=== PATIENT | male | born 1935 | race Caucasian/White ===

== ENCOUNTER 2019-01-04 10:03 | Outpatient (CLI) | payer MEDICARE, OTHER ==
[2019-01-04 10:51] LABS: #Basophils 0.1 thou/uL (0.0-0.2); #Eosinphils 0.2 thou/uL (0.0-0.7); #Lymphocytes 2.1 thou/uL (1.20-3.40); #Monocytes 0.8 thou/uL (0.11-0.59); #Neutrophils 3.8 thou/uL (1.40-6.50); %Basophils 1.1 % (0.0-1.0); %Eosinophils 3.2 % (0.0-10.0); %Lymphocytes 29.7 % (21.0-51.0); %Monocytes 11.7 % (0.0-10.0); %Neutrophils 54.3 % (42.0-75.0); Hemoglobin 15.5 g/dL (14.0-18.0); Mean Corpuscular HGB CONC 33.3 g/dL (32.0-36.0); Mean Corpuscular Hemoglobin 32.9 pg (27.0-31.0); Mean Corpuscular Volume 98.8 fL (78.0-98.0); Mean Platelet Volume 10.1 fL (7.4-10.4); Platelet Count 176 thou/uL (130-400); RBC Distribution Width 11.6 % (11.5-14.5); Red Blood Cell (RBC) Count 4.73 mill/uL (4.70-6.10)
[2019-01-04 11:11] LABS: Anion Gap 12 mmol/L (10-20); BUN (Urea Nitrogen) 22 mg/dL (8.4-25.7); Calc. Creatinine Clearance 0 mL/min (70-130); Calcium 10.3 mg/dL (7.8-10.44); Carbon Dioxide 29 mmol/L (23-31); Chloride 103 mmol/L (98-107); Estimated GFR-MDRD 60; Glucose 86 mg/dL (83-110); Potassium 4.1 mmol/L (3.5-5.1); Sodium 140 mmol/L (136-145)
--- NOTE | 2019-01-04 16:57 | EKG ---
Test Reason : Blood Pressure : / mmHG Vent. Rate : 053 BPM Atrial Rate : 053 BPM P-R Int : 180 ms QRS Dur : 098 ms QT Int : 460 ms P-R-T Axes : 072 067 049 degrees QTc Int : 431 ms Sinus bradycardia Nonspecific ST-T changes No previous ECGs available Confirmed by DR. Jason HARP ([id number]) on 01/04/2019 4:57:43 PM Referred By: LUCIA Confirmed By:DR. Jason HARP
== END 2019-01-04 10:04 | disposition home or self-care (01) ==
LOC: LABBT 10:03
PROVIDERS: ATTEND Specialist
DX: Z01.818 Encounter for other preprocedural examination (principal); D12.8 Benign neoplasm of rectum
CPT/HCPCS: 80048; 85025; 93005; 93010

== ENCOUNTER 2019-01-08 05:45 | Day surgery (SDC) | payer MEDICARE, OTHER ==
[2019-01-04 10:43] VITALS: BMI 20.7
[2019-01-08] MEDS ORDERED: Sodium Chloride 0.9% 100 ML ONE (06:28)
[2019-01-08] MEDS ORDERED: Ketorolac Tromethamine 30 MG/ML VIAL ONE (06:28)
[2019-01-08] MEDS ORDERED: cefOXitin 2 GM VIAL ONE (06:28)
[2019-01-08] MEDS ORDERED: Fentanyl 100 MCG/2 ML VIAL ONE (06:51)
[2019-01-08] MEDS ORDERED: Lidocaine 2% Jelly 5 ML TUBE ONE (06:57)
[2019-01-08] MEDS ORDERED: Bupivacaine/Epinephrine 0.25% 30 ML VIAL ONE (06:57)
[2019-01-08] MEDS ORDERED: PROPOFOL 200 MG/20 ML VIAL ONE (16:30)
[2019-01-08] MEDS ORDERED: Lidocaine 1% PF 5 ML VIAL ONE (16:30)
--- NOTE | 2019-01-09 10:27 | OP ---
DATE OF PROCEDURE: 01/08/2019 PREOPERATIVE DIAGNOSIS: Adenomatous polyps of distal rectum/anal canal. POSTOPERATIVE DIAGNOSIS: Adenomatous polyps of distal rectum/anal canal. PROCEDURE PERFORMED: Transanal resection of rectal polyp x2. ANESTHESIA: General endotracheal. INDICATIONS: The patient is an 83-year-old white male. He recently underwent colonoscopy and biopsy of a couple of lesions in his distal rectum revealed that these were adenomatous polyps. He is taken to the operating room at this time for resection of these polyps. DESCRIPTION OF OPERATION: Informed consent was obtained. The patient was taken to the operating room, where general anesthesia was obtained with the patient in supine position. He was placed in the dorsal lithotomy using stirrups. Perianal area was prepped with Betadine and draped in sterile fashion. Local anesthetic was infiltrated using 0.25% Marcaine with epinephrine in 4 quadrant in a sphincteric fashion. The anus and rectum were thoroughly inspected using the anal speculum. There was a dominant polyp that was at about the 8 o'clock radian, a smaller polyp that was at about the 10 o'clock radian. I did not visualize any other concerning abnormality anywhere in the anorectal canal. Attention was turned first to the larger polyp. This was grasped with Allis clamp. Local anesthetic was infiltrated submucosal and a full-thickness radial elliptical excision was performed. The specimen was passed off the field. The defect was closed with a running locking suture of 3-0 Vicryl. Attention was turned to the smaller polyp. This was fairly close to the first polyp, but excision of both of them in the same specimen would have led to too large for the defect. I therefore resected the second smaller polyp and closed the defect again using a running suture of 3-0 Vicryl. There was no evidence of other abnormality within the anal canal. Hemostasis was intact. Avitene was placed within the anal canal and dry gauze dress was placed externally. There were no complications. The patient tolerated the procedure well and was taken to recovery room in stable condition. Job ID: [id number]
== END 2019-01-08 11:00 | disposition home or self-care (01) ==
LOC: SDC 05:45
PROVIDERS: ATTEND Specialist
PROC: 0DBP7ZZ Excision of Rectum, Via Natural or Artificial Opening (ICD-10-PCS; principal; 2019-01-08)
DX: K62.1 Rectal polyp (principal); Z79.899 Other long term (current) drug therapy
CPT/HCPCS: 88305; J0131; J0694; J1885; J3010; J3490

== ENCOUNTER 2019-05-21 12:58 | Outpatient (CLI) | payer MEDICARE, OTHER ==
[2019-05-21] MEDS ORDERED: Iopamidol-370 76% 500 ML 1 ML ONE (13:59)
--- NOTE | 2019-05-21 14:57 | CT ---
CT ABDOMEN AND PELVIS WITH AND WITHOUT IV CONTRAST: Axial tomograms were obtained without IV enhancement. This was followed by post contrast images perf ormed in a portal venous phase and delayed venous phase following urographic protocol. INDICATION: Gross hematuria. FINDINGS: Lung bases clear. On the noncontrast images there is a 3-4 mm calculus in multiple collecting structures of the left ki dney. No hydronephrosis. Ureters are normal caliber. Urinary bladder is mildly distended. There i s prostatic hypertrophy which indents the floor of the bladder. No evidence of urinary tract obstruc tion. There is a cyst from the superior left kidney which measures 3.0 cm. The kidneys otherwise show norm al and symmetric enhancement and function. Liver and spleen and pancreas unremarkable. Numerous splenic granulomatous calcifications. There is a small low-density focus in the anterior mid liver near the falciform ligament which is subcentimet er and too small to characterize but most likely represents tiny hepatic cyst. The gallbladder is mildly distended. There is a large calcified gallstone in the neck of the gallbla dder which measures 2.0 cm. No evidence of biliary duct dilatation. Adrenal glands appear normal. Small bowel loops appear normal. Colon unremarkable. Large volume stool throughout the colon. Left colon and sigmoid diverticulosis. Images through the pelvis show mildly distended bladder on the delayed sequence. There is a bladder diverticulum which fills from the posterior floor of the bladder on the right. This bladder divertic ulum is measured at up to 5 cm. Osseous structures unremarkable. Degenerative changes at the hips. IMPRESSION: 1. Small nonobstructing calculus lower pole collecting structures left kidney. 2. Prostatic hypertrophy indenting the floor of the bladder. 3. Bladder diverticulum off the posterior bladder to the right of midline measuring up to 5 cm. 4. Left renal cyst as described. 5. Cholelithiasis. 6. Small fixed sliding diaphragmatic hernia. 7. Diverticulosis in the left colon and sigmoid. POS: [facility]
== END 2019-05-21 12:59 | disposition home or self-care (01) ==
LOC: BICCT 12:58
PROVIDERS: ATTEND Urology
DX: R31.0 Gross hematuria (principal); N20.0 Calculus of kidney; N40.0 Benign prostatic hyperplasia without lower urinary tract symptoms; N28.1 Cyst of kidney, acquired; N32.3 Diverticulum of bladder; K80.20 Calculus of gallbladder without cholecystitis without obstruction; K44.9 Diaphragmatic hernia without obstruction or gangrene; K57.30 Diverticulosis of large intestine without perforation or abscess without bleeding
CPT/HCPCS: 74178; 82565; Q9967

== ENCOUNTER 2019-08-10 15:04 | Emergency (ER) | payer MEDICARE, OTHER ==
[2019-08-10 15:59] LABS: Bilirubin Negative (Negative); Blood, Urine 1+ (Negative); Clarity Extra Turbid (Clear); Glucose, Urine (Dipstick) Normal (Negative); Leukocyte 500 Leu/uL (Negative); Nitrite Negative (Negative); Protein, Urine (Dipstick) 50 mg/dL (Neg-Trace); Squamous Epithelial None Seen HPF (0-3); Urobilinogen Normal mg/dL (Less than 2); WBC/HPF Greater than 50 HPF (0-3)
[2019-08-10] MEDS ORDERED: Acetaminophen 500 MG TAB ONE (16:04)
[2019-08-10 16:11] LABS: Bacteria/HPF 2+ HPF (None Seen)
[2019-08-10 16:36] LABS: #Eosinphils 0.2 thou/uL (0.0-0.7); #Lymphocytes 1.3 thou/uL (1.20-3.40); #Monocytes 1.2 thou/uL (0.11-0.59); #Neutrophils 10.6 thou/uL (1.40-6.50); %Basophils 0.2 % (0.0-1.0); %Eosinophils 1.4 % (0.0-10.0); %Lymphocytes 9.4 % (21.0-51.0); %Monocytes 9.3 % (0.0-10.0); %Neutrophils 79.7 % (42.0-75.0); Hemoglobin 14.7 g/dL (14.0-18.0); Mean Corpuscular HGB CONC 34.4 g/dL (32.0-36.0); Mean Corpuscular Volume 98.9 fL (78.0-98.0); Mean Platelet Volume 9.7 fL (7.4-10.4); Platelet Count 179 thou/uL (130-400); Red Blood Cell (RBC) Count 4.31 mill/uL (4.70-6.10); White Blood Cell (WBC) Count 13.4 thou/uL (4.8-10.8)
--- NOTE | 2019-08-10 16:55 | RAD ---
CHEST ONE VIEW: 08/10/19 HISTORY: Cough and congestion. COMPARISON: Radiograph 2014. FINDINGS: Mild increased bronchial markings left lower lobe suggesting chronic bronchitis. No pneumothorax. No effusion. No confluent air space consolidation. No acute osseous abnormality. IMPRESSION: Findings of chronic bronchitis and mild cardiomegaly. POS: HOME
[2019-08-10 16:57] LABS: ALT (SGPT) 14 U/L (8-55); AST (SGOT) 28 U/L (5-34); Albumin 4.2 g/dL (3.4-4.8); Alkaline Phosphatase 90 U/L (40-110); Anion Gap 13 mmol/L (10-20); BUN (Urea Nitrogen) 19 mg/dL (8.4-25.7); Bilirubin, Total 0.7 mg/dL (0.2-1.2); Calc. Creatinine Clearance 0 mL/min (70-130); Calcium 9.7 mg/dL (7.8-10.44); Carbon Dioxide 26 mmol/L (23-31); Chloride 103 mmol/L (98-107); Estimated GFR-MDRD 65; Globulin 3.5 g/dL (2.4-3.5); Glucose 104 mg/dL (83-110); Protein, Total 7.7 g/dL (5.8-8.1); Sodium 138 mmol/L (136-145)
== END 2019-08-10 17:23 | disposition home or self-care (01) ==
LOC: ERS 15:04
DX: N39.0 Urinary tract infection, site not specified (principal); M06.9 Rheumatoid arthritis, unspecified; Z79.899 Other long term (current) drug therapy
CPT/HCPCS: 71045; 80053; 85025; 87077; 87081; 87086; 87430; 87804 ×2; U0002; 36415; 81003; 81015; 87186; 87635

== ENCOUNTER 2019-08-26 08:57 | Inpatient (IN) | payer MEDICARE, OTHER ==
[2019-08-26 10:03] LABS: Hemoglobin 14.7 g/dL (14.0-18.0); Mean Corpuscular HGB CONC 33.5 g/dL (32.0-36.0); Mean Corpuscular Volume 98.3 fL (78.0-98.0); Mean Platelet Volume 9.5 fL (7.4-10.4); Platelet Count 229 thou/uL (130-400); RBC Distribution Width 11.9 % (11.5-14.5); Red Blood Cell (RBC) Count 4.45 mill/uL (4.70-6.10); White Blood Cell (WBC) Count 23.1 thou/uL (4.8-10.8)
[2019-08-26 10:18] LABS: ALT (SGPT) 14 U/L (8-55); AST (SGOT) 28 U/L (5-34); Albumin 4.1 g/dL (3.4-4.8); Alkaline Phosphatase 90 U/L (40-110); Anion Gap 13 mmol/L (10-20); BUN (Urea Nitrogen) 18 mg/dL (8.4-25.7); Bilirubin, Total 0.7 mg/dL (0.2-1.2); Calc. Creatinine Clearance 0 mL/min (70-130); Calcium 9.6 mg/dL (7.8-10.44); Carbon Dioxide 28 mmol/L (23-31); Chloride 104 mmol/L (98-107); Estimated GFR-MDRD 45; Globulin 3.4 g/dL (2.4-3.5); Glucose 137 mg/dL (83-110); Potassium 3.7 mmol/L (3.5-5.1); Protein, Total 7.5 g/dL (5.8-8.1); Sodium 141 mmol/L (136-145)
[2019-08-26 10:32] LABS: Band 41 % (5-11); Lymphocytes 2 % (21-51); MDiff Complete? YES; Monocytes 1 % (0-10); Neutrophil 56 % (42-75); RBC Morphology Normal; Reflex for Review?? NO
--- NOTE | 2019-08-26 10:49 | RAD ---
PORTABLE CHEST 1 VIEW: Date: 08/26/2019 Time: 1007 hours HISTORY: Fever, chills, body aches, right flank pain, and dysuria. COMPARISON: 08/10/2019. FINDINGS: The heart size is normal. The aorta is tortuous. The lungs are well expanded without lobar consolidat ion, pneumothoraces, or pleural effusions. IMPRESSION: No acute process. POS: [facility]
[2019-08-26 11:17] LABS: Bilirubin Negative (Negative); Blood, Urine 3+ (Negative); Clarity Extra Turbid (Clear); Glucose, Urine (Dipstick) Normal (Negative); Leukocyte 500 Leu/uL (Negative); Nitrite Negative (Negative); Protein, Urine (Dipstick) 200 mg/dL (Neg-Trace); RBC/HPF Greater than 50 HPF (0-3); Squamous Epithelial 0-3 HPF (0-3); Urobilinogen Normal mg/dL (Less than 2); WBC/HPF Greater than 50 HPF (0-3)
[2019-08-26] MEDS ORDERED: cefTRIAXone\\ROCEPHIN 2 GM VIAL ONE (11:24)
[2019-08-26] MEDS ORDERED: Vancomycin 1.5 GRAM/300 ML BAG 1.5 GM in Premix Bag 1 BAG IVPB SCH (11:30)
[2019-08-26 11:37] LABS: Bacteria/HPF 3+ HPF (None Seen)
--- NOTE | 2019-08-26 11:43 | CT ---
CT ABDOMEN AND PELVIS WITHOUT CONTRAST: Date: 08/26/2019 HISTORY: Right flank pain and fever. COMPARISON: 05/21/2019. FINDINGS: Absence of oral and IV contrast reduces the sensitivity of exam, particularly for evaluation of solid organs and bowel. Chronic changes in the lung harper are again seen with a stable 13.0 mm peripheral solid lung nodule in the left lung base. A 2.0 cm calcified gallstone is again seen. There are calcified granulomas in the spleen. A small hia damaso hernia is again noted. The 3.0 cm left renal cyst is stable. A 3.0 mm calculus is seen in the central portion of inferior pole of the left kidney. No calculi are seen in the right kidney, either ureter, or the urinary bladder. Prostatic enlargement and a large ri ght posterior urinary bladder diverticulum are again seen. The diverticulum is larger measuring 6.5 c m. No hydroureteronephrosis is noted on either side. The tiny cyst in the anterior aspect of the liver is again seen. No free air or free fluid is seen in the abdomen or pelvis. There is colonic diverticulosis. Vascular calcifications are present without evidence of aneurysmal dilatation of the abdominal aorta. Degenerative changes in the spine are again noted. IMPRESSION: 1. Stable 13.0 mm left basilar lung nodule. This should be evaluated with a PET scan. 2. Cholelithiasis. 3. Left renal cyst. 4. 3.0 mm nonobstructing left renal calculus. 5. Prostatic enlargement. 6. Large posterior urinary bladder diverticulum. 7. Colonic diverticulosis. CODE LN POS: [facility]
[2019-08-26] MEDS ORDERED: Acetaminophen 325 MG TAB PO PRN (14:33)
[2019-08-26 15:31] VITALS: BMI 22.2
[2019-08-26] MEDS: Sodium Chloride 0.9% 1,000 ML IV SCH (18:51)
--- NOTE | 2019-08-26 20:53 | HP ---
CHIEF COMPLAINT: Generalized body aches and pains and chills x1 day. HISTORY OF PRESENT ILLNESS: The patient is a very pleasant 84-year-old male with no significant past medical history except for rheumatoid arthritis. He takes Cimzia once a month and also is on Plaquenil daily, who comes into the hospital with complaints of lower back pain and chills x1 day. The patient states that he has had multiple urinary tract infections and has been following up with Urology on an outpatient basis. However, about 2 weeks ago, he came into the ER with complaints of dysuria and urinary frequency. At this time, urine culture was done and he was sent home on Keflex for about 2 weeks. Upon reviewing the records, the culture on 08/09 indicated enterococcus which was susceptible to everything. He also was tested for COVID and COVID was negative. The patient stated that he took two weeks of antibiotics and initially felt well. However, he woke up this morning, started having significant lower back pain, was very diaphoretic, had chills and was shaking, so he came into the hospital for further evaluation. The patient is an avid runner. He normally runs 3 to 4 miles 3 to 4 times a week. PAST MEDICAL HISTORY: As of the following: He has a history of hemorrhoids and urinary tract infections and rheumatoid arthritis. MEDICATIONS: He is on: 1. Plaquenil 200 mg daily. 2. Cimzia once a month shot. 3. Some vitamins. PAST SURGICAL HISTORY: He has had hernia surgery, kidney stones, and LASIK surgery. FAMILY HISTORY: Father , diagnosed with heart disease. Mother , diagnosed with heart disease. SOCIAL HISTORY: He denies any alcohol use, drug use, or smoking history. He is a full code. Lives with his . ALLERGIES: NO KNOWN DRUG ALLERGIES. REVIEW OF SYSTEMS: All negative except for the ones mentioned above in the HPI. PHYSICAL EXAMINATION: VITAL SIGNS: Are as of the following; temperature of 98.7, 112/49, 67, , 97% on room air. GENERAL: He is awake, alert, and oriented x3. Does not appear in any distress. CV: S1, S2 present. No murmurs, rubs, or gallops. LUNGS: Clear to auscultation. No rhonchi or wheezes noted. ABDOMEN: Soft and nontender. Bowel sounds are present x2. No flank pain upon palpation. EXTREMITIES: No edema. Pedal pulses are present x2. NEUROVASCULAR: There are no focal deficits noted. SKIN: No cuts, lesions or bruises noted. LABORATORY RESULTS: As of the following; WBCs of 23.1, hemoglobin of 14.7, hematocrit 43.7, platelets of 229. Chemistry; his bands are 41, sodium of 141, potassium 3.7, BUN of 18, creatinine of 1.48. He did have a CT of abdomen and pelvis, which indicated that he has a stable 13.0 mm left basal lung nodule. He also has a 3.0 mm nonobstructing left renal calculus, enlarged prostate, large posterior urinary bladder diverticulum and colonic diverticulosis. ASSESSMENT AND PLAN: The patient is a very pleasant 84-year-old male, who presents to the hospital with complaints of diaphoresis and chills. 1. Sepsis most likely from urinary tract infection. The patient's urine culture indicates Enterococcus which is pansensitive. We will start him on meropenem given his low borderline blood pressure and his elevated leukocytosis. We will consult Urology. The patient is supposed to follow up with Urology in November. However, given his extensive urological history, I will go ahead and consult Urology. We will resend the culture for his current urine. I am not sure if that will grow anything. The patient may require long-term IV antibiotics depending on what the culture comes back versus maybe he can be sent home with something oral. I will also start the patient on some gentle hydration and continue to monitor. 2. Leukocytosis with bandemia. This most likely is secondary to urinary tract infection. We will continue to monitor. 3. Rheumatoid arthritis. He has been taking his Cimzia in the past month. We will ask him to not to take it given his current infection. Plaquenil, I will hold for now. However, I think it should be okay to be resumed in the next couple days. 4. Deep venous thrombosis prophylaxis. We will put the patient on subcu heparin. Job ID: [id number]
[2019-08-26] MEDS: MEROPENEM 1 GM/50 ML 1 GM in Premix Bag 1 BAG IVPB SCH (22:01)
[2019-08-27 04:40] LABS: #Eosinphils 0.1 thou/uL (0.0-0.7); #Lymphocytes 1.2 thou/uL (1.20-3.40); #Monocytes 1.1 thou/uL (0.11-0.59); #Neutrophils 13.4 thou/uL (1.40-6.50); %Basophils 0.2 % (0.0-1.0); %Eosinophils 0.5 % (0.0-10.0); %Lymphocytes 7.8 % (21.0-51.0); %Monocytes 7.1 % (0.0-10.0); %Neutrophils 84.5 % (42.0-75.0); Hemoglobin 11.8 g/dL (14.0-18.0); Mean Corpuscular HGB CONC 33.7 g/dL (32.0-36.0); Mean Corpuscular Hemoglobin 33.8 pg (27.0-31.0); Mean Platelet Volume 10.1 fL (7.4-10.4); Platelet Count 167 thou/uL (130-400); RBC Distribution Width 12.2 % (11.5-14.5); White Blood Cell (WBC) Count 15.8 thou/uL (4.8-10.8)
[2019-08-27] MEDS: MEROPENEM 1 GM/50 ML 1 GM in Premix Bag 1 BAG IVPB SCH (05:20)
[2019-08-27] MEDS: Sodium Chloride 0.9% 1,000 ML IV SCH ×3 (05:20→22:26)
[2019-08-27 05:25] LABS: Anion Gap 13 mmol/L (10-20); BUN (Urea Nitrogen) 16 mg/dL (8.4-25.7); Calc. Creatinine Clearance 56 mL/min (70-130); Calcium 7.9 mg/dL (7.8-10.44); Carbon Dioxide 19 mmol/L (23-31); Chloride 109 mmol/L (98-107); Estimated GFR-MDRD 75; Glucose 91 mg/dL (83-110); Potassium 3.4 mmol/L (3.5-5.1); Sodium 138 mmol/L (136-145)
[2019-08-27] MEDS: Enoxaparin Sodium 40 MG/0.4 ML SYRINGE SC SCH (09:28)
[2019-08-27] MEDS: Ampicillin 2 GM in Sodium Chloride 0.9% 100 ML IVPB SCH ×2 (11:58→17:21)
[2019-08-27] MEDS ORDERED: Potassium Chloride 20 MEQ TAB PO SCH (16:30)
--- NOTE | 2019-08-27 22:36 | CON ---
DATE OF CONSULTATION: 08/27/2019 REASON FOR CONSULTATION: UTI with bacteremia. HISTORY OF PRESENT ILLNESS: An 84-year-old with history of rheumatoid arthritis , on Cimzia and BPH who developed a fever. He has had urinary tract infections in the past, but has not had many admissions to this hospital. He had a transanal resection of a rectal polyp x2 in December last year and Dr. Louie did a cystoscopy recently, but he has not had a TURP or any other type of procedure, so he was admitted and initial findings included temperature 98.7, BP 112/49. The exam was fairly normal. Initial findings also included a white cell count of 23,000, hemoglobin 14, platelets 229 with 41% bands. Creatinine is 1.48. Liver profile normal. Albumin 4.1. He had a COVID test, which was negative and urinalysis was abnormal with greater than 50 wbc's. In terms of microbiology, we had a urine culture from August 09 with Enterococcus faecalis and now have the same organism in 1 set of blood cultures and also likely growing from the urine sample submitted. In addition to that there is a 2nd organism, which has been identified as an E. coli. Mr. Colunga was given meropenem and now he is on ampicillin. He is feeling well. Denies headaches. No visual symptoms, sore throat, odynophagia, dysphagia, cough, sputum production, chest pain, abdominal pain, or diarrhea. He had very little dysuria, but not any more. No joint symptoms. No back pain. No neurological symptoms. MEDICAL HISTORY: UTI, BPH, rheumatoid arthritis, hemorrhoids, rectal sigmoid polyps, polyp resection, cystoscopy. He also has evidence of bladder diverticulum or diverticula. MEDICATIONS: 1. Cimzia. 2. Plaquenil. CURRENT MEDICATIONS: 1. Ampicillin. 2. Enoxaparin. SOCIAL HISTORY: Never smoker. 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 No alcoholic beverages. ALLERGIES: NONE. FAMILY HISTORY: Coronary artery disease. PHYSICAL EXAMINATION: VITAL SIGNS: T-max 99, currently 99.8; BP 106/53; pulse 50; respirations 14; O2 saturation 97. SKIN: Normal. No lymphadenopathy. HEENT: Ocular movements conjugate. Sclerae white. Oral cavity unremarkable. NECK: Supple. LUNGS: Symmetric clear breath sounds. HEART: S1, S2. Regular rate. Diminished heart sounds. No murmurs. ABDOMEN: Soft. Not distended or tender. No ascites. No bladder distention. No joint inflammatory activity. GENITAL: Normal. No edema. NEURO: Nonfocal including cognitive function. LABORATORY DATA: The latest labs; sodium 138, creatinine down to 0.95. White cell count is down to 15.8, hemoglobin 11.8, platelets 167. ASSESSMENT: Benign prostatic hypertrophy with bladder diverticulum and invasive urinary tract infection with pyelonephritis right side. The abdomen and pelvis CT showed a small nonobstructing renal calculus. He also had a 1.3 cm lung nodule left side, and the radiology recommended a PET scan. So, he does have a 2nd organism in the bladder and we do not have susceptibilities on that 1 yet, but he will certainly need ampicillin at least for the Enterococcus faecalis. He could be transitioned to oral amoxicillin 1 g 3 times daily for about 2 weeks and for discharge planning. The rates of recrudescence of infection with beta lactams are bit higher than quinolones and sulfa drugs, but they work well for Enterococcus. The patient will be continuing risk of those episodes in the future because of the bladder diverticulum and there was no evidence based data to justify chronic suppression for those patients, although I wonder if he might benefit from it, may be nitrofurantoin low-dose at night, chronic suppressive therapy in the future. I would probably give it a try. Job ID: [id number] [facility]
[2019-08-28] MEDS: Ampicillin 2 GM in Sodium Chloride 0.9% 100 ML IVPB SCH ×2 (00:22→05:44)
--- NOTE | 2019-08-28 05:50 | PDOC.HOSPP ---
- Subjective Encounter Date: 08/27/19 Encounter Time: 11:00 Subjective: pt up in bed feels better today. - Objective Vital Signs & Weight: Vital Signs (12 hours) Temp Pulse Resp BP Pulse Ox 08/28/19 03:23 98.1 F 50 L 18 129/60 96 08/27/19 20:24 99.0 F 52 L 16 102/53 L 96 Weight Weight 155 lb 3.2 oz Result Diagrams: 08/27/19 04:24 08/27/19 04:24 Hospitalist ROS - Review of Systems Cardiovascular: denies: chest pain, palpitations, orthopnea, paroxysmal noc. dyspnea, edema, light headedness, other Gastrointestinal: denies: nausea, vomiting, abdominal pain, diarrhea, constipation, melena, hematochezia, other Genitourinary: denies: dysuria, frequency, incontinence, hematuria, retention, other - Medication Medications: Active Medications Generic Name Dose Route Start Last Admin Trade Name Freq PRN Reason Stop Dose Admin Enoxaparin Sodium 40 mg 08/27/19 09:00 08/27/19 09:28 Lovenox SC 40 mg 0900 HERLINDA Administration Sodium Chloride 1,000 mls @ 75 mls/hr 08/26/19 14:45 08/27/19 22:26 Normal Saline 0.9% IV 1,000 mls .[id number] HERLINDA Administration Ampicillin Sodium 2 gm/ Sodium 100 mls @ 200 mls/hr 08/27/19 12:00 08/28/19 05:44 Chloride IVPB 100 mls Q6HR HERLINDA Administration Sodium Chloride 10 ml 08/27/19 21:00 08/27/19 22:26 Flush - Normal Saline IVF 10 ml Q12HR HERLINDA Administration - Exam Neck: negative: supple, symmetric, no JVD, no thyromegaly, no lymphadenopathy, no carotid bruit, JVD Heart: negative: RRR, no murmur, no gallops, no rubs, normal peripheral pulses, irregular, diminshed peripheral pulses, murmur present, II/IV, III/IV Respiratory: negative: CTAB, no wheezes, no rales, no ronchi, normal chest expansion, no tachypnea, normal percussion, rales, rhonchi, tachypneic, wheezes Hosp A/P (1) Sepsis Code(s): A41.9 - SEPSIS, UNSPECIFIED ORGANISM Status: Acute (2) UTI (urinary tract infection) Status: Acute (3) Bacteremia Code(s): R78.81 - BACTEREMIA Status: Acute - Plan will continue abx for now. pt's blood cx positive for enterococcus. will consult ID. urology has not seen the pt.
[2019-08-28] MEDS: Sodium Chloride 0.9% 1,000 ML IV SCH (06:19)
[2019-08-28 07:42] VITALS: TEMP 97.9
[2019-08-28] MEDS: Enoxaparin Sodium 40 MG/0.4 ML SYRINGE SC SCH (08:50)
[2019-08-28 15:25] VITALS: BP 149/68
--- NOTE | 2019-08-29 04:40 | DIS ---
DATE OF ADMISSION: 08/26/2019 DATE OF DISCHARGE: 08/28/2019 DISCHARGE DIAGNOSES: As of the following. 1. Sepsis. 2. Bacteremia. 3. Urinary tract infection. HOSPITAL COURSE: The patient is a very pleasant, healthy 84-year-old male, who initially presented to the hospital with chills and fever. He was noted to have low blood pressure, sepsis protocol was activated. The patient was given antibiotics and IV hydration. The patient's blood cultures and urine culture, both were positive for enterococcus faecalis. He was at this time seen by Infectious Disease, who recommended the patient to be discharged home with p.o. antibiotics for about 2 weeks. Neurology also was consulted. However, they never came into see the patient and never communicated with me in regard to why the patient was not seen in the hospital. The patient had a CT of abdomen and pelvis, which indicated a stable 13.0 left basilar lung nodule, which he has been notified about. He also had a 3.0 mm nonobstructing left renal calculi. The patient does have a significantly large prostate, urinary bladder diverticulum. Given his diverticulum, the patient has had a frequent bouts of UTIs and he will require to follow up with his primary and also with Urology for either surgical versus antibiotics. The patient actually was at our ER two weeks prior to our admission date and this time, he was given Keflex, which was not susceptible to enterococcus. Per IDs recommendation, he may require nitrofurantoin low dose at night for chronic suppressive therapy in the future, if surgery is not an option. PHYSICAL EXAMINATION: VITAL SIGNS: Temperature of 97.9, heart rate of 56, respiratory rate of 20, oxygen saturation of 95% on room air, and blood pressure of 140/65. GENERAL: He is awake, alert, and oriented x3. Does not appear in distress. CV: S1 and S2 present. No murmurs, rubs, or gallops. ABDOMEN: Soft and nontender. Bowel sounds are present x2. The patient states he feels really well. MEDICATIONS: 1. Amoxicillin 1000 mg p.o. every 8 hours for 2 weeks. 2. Cipro 250 mg q.12 hours. He did have 25 to 50 colonies of E. coli. 3. Florastor 250 mg daily. 4. He does not take Cimzia any more. 5. Hydroxychloroquine 200 mg daily. 6. Vitamin E and multivitamin. Job ID: [id number]
--- NOTE | 2019-09-05 16:25 | EKG ---
Test Reason : Blood Pressure : / mmHG Vent. Rate : 085 BPM Atrial Rate : 085 BPM P-R Int : 174 ms QRS Dur : 088 ms QT Int : 404 ms P-R-T Axes : 040 055 051 degrees QTc Int : 480 ms Normal sinus rhythm with sinus arrhythmia T wave abnormality, consider anterior ischemia Prolonged QT Abnormal ECG Confirmed by CARTER REAGAN, CIRO ([id number]), manager editorial EMILIE TRINH ([id number]) on 09/05/2019 4:25:18 PM Referred By: Confirmed By:CIRO MACHADO MD
== END 2019-08-28 12:53 | disposition home or self-care (01) | DRG 872 ==
LOC: ERS 08:57 → 2NO 15:18
PROVIDERS: ADMIT Internal Medicine; ATTEND Internal Medicine
DX: A41.81 Sepsis due to Enterococcus (principal); N39.0 Urinary tract infection, site not specified; M06.9 Rheumatoid arthritis, unspecified; Z20.828 Contact with and (suspected) exposure to other viral communicable diseases; N40.0 Benign prostatic hyperplasia without lower urinary tract symptoms; N32.3 Diverticulum of bladder; Z79.899 Other long term (current) drug therapy
CPT/HCPCS: 36415; 71045; 74176; 80048; 80053; 81003; 81015; 83605; 85025; 87040; 87077; 87086; 87149; 87186; 93005; 96361; 96365; 96366; 96367; J0290; J0696; J1650; J2185; J3370; J3490

== ENCOUNTER 2020-02-08 11:11 | Emergency (ER) | payer MEDICARE, OTHER ==
--- NOTE | 2020-02-08 13:16 | CT ---
CT HEAD WITHOUT CONTRAST: INDICATION: Fall with injury. FINDINGS: Ventricles have normal size and position. No evidence of intracranial hemorrhage. NO mass, infarct, or edema. Paranasal sinuses and mastoids are clear. IMPRESSION: No acute process. POS: [facility]
--- NOTE | 2020-02-08 13:18 | CT ---
CT FACIAL BONES: INDICATION: Fall with injury to face. FINDINGS: Nasal bones appear intact. Orbits appear intact. Lamina papyracea intact. Zygoma intact. The maxilla appears intact. The paranasal sinuses appear clear. Prominent radha bullosa in the rig ht middle turbinate is noted and there is septal deviation to the left. Mandible appears intact. There is subcutaneous edema over the left face and orbit. IMPRESSION: No evidence of facial bone fracture. POS: [facility]
--- NOTE | 2020-02-08 13:20 | CT ---
CT CERVICAL SPINE: INDICATION: Fall with injury to neck. FINDINGS: Cervical vertebrae maintain normal height and alignment. Degenerative disk changes are prominent at the C6-7 level with disk narrowing, spurring, and spondylosis. Superior end plate deformity at C5. There is no evidence of cervical spine fracture. IMPRESSION: No acute fracture. There are degenerative changes of the cervical spine as described. POS: [facility]
== END 2020-02-08 13:31 | disposition home or self-care (01) ==
LOC: ERS 11:11
DX: S51.812A Laceration without foreign body of left forearm, initial encounter (principal); S00.83XA Contusion of other part of head, initial encounter; W01.0XXA Fall on same level from slipping, tripping and stumbling without subsequent striking against object, initial encounter
CPT/HCPCS: 70450; 70486; 72125

== ENCOUNTER 2021-01-05 15:03 | Emergency (ER) | payer MEDICARE, OTHER | END 2021-01-05 16:11 | disposition home or self-care (01) | LOC: ERS 15:03 | DX: S01.01XA Laceration without foreign body of scalp, initial encounter (principal); W18.2XXA Fall in (into) shower or empty bathtub, initial encounter; Z79.899 Other long term (current) drug therapy | CPT/HCPCS: 70450 ==

== ENCOUNTER 2021-12-10 19:54 | Emergency (ER) | payer MEDICARE, OTHER ==
[2021-12-10] MEDS ORDERED: Fentanyl 100 MCG/2 ML VIAL ONE (21:27)
[2021-12-10] MEDS ORDERED: Dexamethasone 20 MG/5 ML VIAL ONE (21:35)
[2021-12-10] MEDS ORDERED: Glycopyrrolate 0.2 MG/ML 5 ML SYRINGE ONE (21:35)
[2021-12-10] MEDS ORDERED: Lidocaine 1% PF 5 ML VIAL ONE (21:35)
[2021-12-10] MEDS ORDERED: PROPOFOL 200 MG/20 ML VIAL ONE (21:35)
[2021-12-10] MEDS ORDERED: ePHEDrine 50 MG/ML VIAL ONE (21:35)
[2021-12-10] MEDS ORDERED: Ondansetron PF 4 MG/2 ML Vial ONE (21:35)
== END 2021-12-10 21:32 | disposition admitted as inpatient to this hospital (09) ==
LOC: ERS 19:54
PROC: 0DC48ZZ Extirpation of Matter from Esophagogastric Junction, Via Natural or Artificial Opening Endoscopic (ICD-10-PCS; principal; 2021-12-10)
DX: T18.128A Food in esophagus causing other injury, initial encounter (principal); K22.2 Esophageal obstruction; K44.9 Diaphragmatic hernia without obstruction or gangrene; M06.9 Rheumatoid arthritis, unspecified; Z79.899 Other long term (current) drug therapy; Z88.2 Allergy status to sulfonamides; X58.XXXA Exposure to other specified factors, initial encounter
CPT/HCPCS: 71045; J1100; J2405; J2704; J3010; J3490